=== PATIENT | male | born 1940 | race Caucasian/White ===

== ENCOUNTER 2018-08-26 07:25 | Inpatient (IN) | payer MEDICARE, OTHER ==
[~2018-08-26] VITALS: Ht 180.3 cm; Wt 74.4 kg
[2018-08-26 11:20] VITALS: BMI 26.5
[2018-08-26 12:08] VITALS: BP 91/51
[2018-08-26 13:08] LABS: BASOPHILS 0 % (0-2); EOSINOPHILS 0.1 % (0-7); HEMATOCRIT 36.2 % (42.0-54.0); HEMOGLOBIN 12.1 g/dL (13.5-17.5); IMMATURE GRANULOCYTES 0.3 % (0-5); LYMPHOCYTES 3.1 % (15-50); MCH 28.2 pg (26.0-34.0); MCHC 33.4 g/dL (31.0-37.0); MCV 84.4 fL (80.0-100.0); MEAN PLATELET VOLUME 9.9 fL (7.4-10.4); MONOCYTES 4.4 % (2-11); NEUTROPHILS 92.1 % (40-80); PLATELET COUNT 87 10x3/uL (130-400); RBC 4.29 10x6/uL (4.20-6.10); RDW 14.4 % (11.5-14.5); WBC 12.3 10x3/uL (4.8-10.8)
[2018-08-26 13:24] LABS: ALBUMIN 2.7 g/dL (3.4-5.0); ANION GAP 13.8 mmol/L (8-16); BILIRUBIN - TOTAL 6.56 mg/dL (0.2-1.3); CARBON DIOXIDE 23.8 mmol/L (21.0-32.0); CREATININE - SERUM 1.9 mg/dL (0.6-1.3); POTASSIUM - SERUM 4.6 mmol/L (3.5-5.1); PROTEIN - SERUM 6.4 g/dL (6.4-8.2)
[2018-08-26 14:13] LABS: PLATELET ESTIMATE DECREASED
[2018-08-26 14:15] LABS: SMUDGE CELLS OCC
--- NOTE | 2018-08-26 15:38 | NUR ---
32.2 SECONDS FLURO TIME 13CC CONTRAST USED
[2018-08-26 22:04] VITALS: BP 106/55
[2018-08-27 00:04] VITALS: BP 102/48
--- NOTE | 2018-08-27 04:28 | NUR ---
I have reviewed this patient and I concur with the Shift Assessment completed by the Licensed Practical Nurse today this shift.
[2018-08-27 05:40] LABS: BASOPHILS 0.2 % (0-2); EOSINOPHILS 3.3 % (0-7); HEMATOCRIT 33.3 % (42.0-54.0); HEMOGLOBIN 11.1 g/dL (13.5-17.5); IMMATURE GRANULOCYTES 0.2 % (0-5); LYMPHOCYTES 10.7 % (15-50); MCHC 33.3 g/dL (31.0-37.0); MCV 83.9 fL (80.0-100.0); MEAN PLATELET VOLUME 10.3 fL (7.4-10.4); MONOCYTES 5.6 % (2-11); PLATELET COUNT 71 10x3/uL (130-400); RBC 3.97 10x6/uL (4.20-6.10); RDW 14.7 % (11.5-14.5)
[2018-08-27 05:55] VITALS: BP 93/48
[2018-08-27 06:21] LABS: INR 1.48 (0.85-1.17); PROTIME 17.3 SECONDS (11.6-15.0)
[2018-08-27 06:22] LABS: WBC 5.7 10x3/uL (4.8-10.8)
[2018-08-27 06:50] LABS: ALBUMIN 2.4 g/dL (3.4-5.0); ANION GAP 15.5 mmol/L (8-16); BILIRUBIN - DIRECT 4.36 mg/dL (0.00-0.30); BILIRUBIN - INDIRECT 0.72 mg/dL (0.00-1.00); BILIRUBIN - TOTAL 5.08 mg/dL (0.2-1.3); CALCIUM 7.9 mg/dL (8.5-10.1); CARBON DIOXIDE 20.5 mmol/L (21.0-32.0); CREATININE - SERUM 1.6 mg/dL (0.6-1.3); MAGNESIUM - SERUM 1.9 mg/dL (1.8-2.4)
--- NOTE | 2018-08-27 07:00 | NUR ---
RECEIVED REPORT. ASSUMED CARE OF PATIENT. PATIENT RESTING WITH EYES CLOSED. RESP EVEN AND UNLABORED. NO DISTRESS. CALL LIGHT WITHIN REACH. IV FLUIDS INFUSING ORDERED.
[2018-08-27 07:42] VITALS: BP 108/47
--- NOTE | 2018-08-27 08:19 | NUR ---
AMBULATING IN ROOM. NO DISTRESS.
--- NOTE | 2018-08-27 08:21 | NUR ---
SPOKE WITH HOMERO IN SURGERY AND CONFIRMED THAT PATIENT IS NOT HAVING LAP OWEN TODAY, BUT IS SCHEDULED TOMORROW FOR AROUND 1130ISH PER HOMERO. THANKED HOMERO FOR THIS CLARIFICATION AND WILL LET PATIENT CONSUME CLEAR LIQUID DIET AT THIS TIME.
[2018-08-27 11:25] VITALS: BP 121/54
[2018-08-27 14:09] VITALS: Ht 180.3 cm; Wt 74.4 kg
[2018-08-27 15:26] VITALS: BP 150/63
--- NOTE | 2018-08-27 15:26 | NUR ---
PATIENT SITTING IN BED. NO DISTRESS. CALL LIGHT WITHIN REACH. ATTENTION TOWARD TELEVISION.
--- NOTE | 2018-08-27 19:40 | NUR ---
AWAKE AND NEEDED ASSISTANCE WITH THE PHONE..DENIES OTHER NEEDS BED IS LOW AND LOCKED AND CALL LIGHT IS IN REACH..LCTA BOWEL SOUNDS X4
[2018-08-27 21:27] VITALS: BP 127/58
[2018-08-28 00:38] VITALS: BP 108/53
[2018-08-28 05:35] LABS: BASOPHILS 0.2 % (0-2); EOSINOPHILS 4.6 % (0-7); HEMATOCRIT 31.4 % (42.0-54.0); HEMOGLOBIN 10.6 g/dL (13.5-17.5); IMMATURE GRANULOCYTES 0.3 % (0-5); LYMPHOCYTES 14.4 % (15-50); MCHC 33.8 g/dL (31.0-37.0); MCV 83.1 fL (80.0-100.0); MEAN PLATELET VOLUME 10.8 fL (7.4-10.4); MONOCYTES 9.8 % (2-11); NEUTROPHILS 70.7 % (40-80); PLATELET COUNT 76 10x3/uL (130-400); RBC 3.78 10x6/uL (4.20-6.10); WBC 6.3 10x3/uL (4.8-10.8)
[2018-08-28 06:15] VITALS: BP 112/59
[2018-08-28 06:35] LABS: ALBUMIN 2.2 g/dL (3.4-5.0); ANION GAP 14.5 mmol/L (8-16); BILIRUBIN - DIRECT 2.04 mg/dL (0.00-0.30); BILIRUBIN - INDIRECT 0.79 mg/dL (0.00-1.00); BILIRUBIN - TOTAL 2.83 mg/dL (0.2-1.3); CALCIUM 7.5 mg/dL (8.5-10.1); CARBON DIOXIDE 19.5 mmol/L (21.0-32.0); CREATININE - SERUM 1.4 mg/dL (0.6-1.3); MAGNESIUM - SERUM 1.7 mg/dL (1.8-2.4); PROTEIN - SERUM 5.9 g/dL (6.4-8.2)
[2018-08-28 07:49] LABS: HYPOCHROMASIA OCC; PLATELET ESTIMATE DECREASED
[2018-08-28 08:03] VITALS: BP 136/68
--- NOTE | 2018-08-28 09:00 | NUR ---
AM ROUNDS COMPLETED INTRODUCED MYSELF TO PT PRIMARY RN FOR TODAYS SHIFT. PT IS A&O LYING BACK IN BED RESTING QUIETLY. SHIFT ASSESSMENT COMPLETED. PT IS NPO FOR LAP/OWEN TODAY AND VERBALIZED UNDERSTANDING. PT C/O HIS R.HAND BEING SWOLLEN, UPON ASSESSING HIM NOTED HIS R.AC WAS RED AND HIS ARM FROM HIS IV SITE DOWN TO HIS HAND. PIV IS INFILTRATED. D/C WITH CATHETER TIP FULLY INTACT. NEW 22 GUAGE INSERTED TO L.AC X2 STICKS. INITIATED PTS IV ANBX ORDERED. PT VOICED THANKS AND IS WAITING QUIETLY FOR PROCEDURE. NO FURTHER NEEDS AT THIS TIME. WILL CTM.
--- NOTE | 2018-08-28 11:49 | NUR ---
PT RESTING QUIETLY WAITING ON PROCEDURE. SURGERY CALLED TO PRE-OP PT IS IN GOWN AND PREPPED, WILL GIVE PRE-OP MEDICATIONS NOW ORDERED. NO FURTHER NEEDS. FAMILY VISITING AT BEDSIDE. WILL CTM.
[2018-08-28 11:50] VITALS: BP 139/67
--- NOTE | 2018-08-28 13:28 | NUR ---
PT LEAVING PROCEDURE NOW. NO CURRENT NEEDS.
[2018-08-28] MEDS ORDERED: HYDROCODON-ACE1 EAC7 PO (15:15)
[2018-08-28 16:05] VITALS: BP 147/75
--- NOTE | 2018-08-28 16:05 | NUR ---
PT BACK FROM PROCEDURE AWAKE A&O SITTING UP IN BED. NEPHEW AT BEDSIDE TO VISIT. VSS AND BEING MONITERED PER POST PROCEDURE POLICY. PT HAS 4 NEW ABDOMINAL LAP INCISIONS, ALL HAVE STERI-STRIPS CDI NO S/S OF BLEEDING BRUISING OR HEMATOMA NOTED. INTRUCTED PT TO SPLINT ABDOMEN WITH ANY COUGHING. PT VERBALIZED UNDERSTANDING. INITIATED IV FLUIDS AND IVPB ANBX ORDERED. PT DENIES ANY CURRENT PAIN OR NEEDS AT THIS TIME. CL IN REACH, BED IN LOWEST, SIDE RAILS X2. WILL CTM.
--- NOTE | 2018-08-28 17:35 | NUR ---
PT UNABLE TO VOID AND FEELS LIKE HE NEEDS TO, AT BEDSIDE GOING OVER SURGERY RESULTS AND WILL START FLOMAX TO HELP WITH URINATION. WILL BLADDER SCAN IF PT STILL UNABLE. PT NOW ON FULL LIQUID DIET AND TOLERATED 100% OF HIS DINNER WITHOUT ANY DISCOMFORT OR ISSUES NOTED. ALL 4 LAP INCISIONS ARE DRY AND INTACT WITH STERI-STRIPS ADHERED TO SKIN. VSS AND STILL BEING MONITERED PER POST PROCEDURE PROTOCOL. NO CURRENT NEEDS AT THIS TIME. WILL CTM.
--- NOTE | 2018-08-28 19:15 | NUR ---
PT SITTING UP ON SIDE OF BED ALERT AND ORIENTED. SCANT AMOUNT OF BLOOD ON GOWN ON UPPER ABDOMINAL AREA AT INCITION SITE. CHANGED GOWN. PT UP TO BATHRROOM WITH SOB. O2 SAT 97%. BED LOW CALL LIGHT WITHIN REACH. PT VOIDING 75ML/HR. WILL CONTINUE TO MONITOR.
--- NOTE | 2018-08-28 20:15 | NUR ---
PT SITTING UP IN BED ALERT AND ORIENTED RR EVEN AND UNLABORED. NO S/S OF DISTRESS. BED LOW SIDE RAILS UP X2, CALL LIGHT WITHIN REACH. WILL CONTINUE TO MONITOR.
[2018-08-28 21:21] VITALS: BP 167/68
[2018-08-29 04:00] VITALS: BP 142/68
--- NOTE | 2018-08-29 04:17 | NUR ---
PT RESTING COMFORTABLY RR EVEN AND UNLABORED. PT DENIES ANY PAIN OR NEEDS AT THIS TIME. BED LOW CALL LIGHT WITHIN REACH. WILL CONTINUE TO MONITOR.
[2018-08-29 06:00] LABS: BASOPHILS 0.1 % (0-2); EOSINOPHILS 2.8 % (0-7); HEMATOCRIT 32.1 % (42.0-54.0); HEMOGLOBIN 10.9 g/dL (13.5-17.5); IMMATURE GRANULOCYTES 0.3 % (0-5); LYMPHOCYTES 10.4 % (15-50); MCV 82.5 fL (80.0-100.0); MEAN PLATELET VOLUME 9.8 fL (7.4-10.4); MONOCYTES 7.4 % (2-11); PLATELET COUNT 86 10x3/uL (130-400); RBC 3.89 10x6/uL (4.20-6.10); RDW 15.1 % (11.5-14.5)
[2018-08-29 06:24] LABS: ALBUMIN 2.2 g/dL (3.4-5.0); ANION GAP 14.8 mmol/L (8-16); BILIRUBIN - TOTAL 1.92 mg/dL (0.2-1.3); CALCIUM 7.8 mg/dL (8.5-10.1); CARBON DIOXIDE 19.9 mmol/L (21.0-32.0); CREATININE - SERUM 1.3 mg/dL (0.6-1.3); MAGNESIUM - SERUM 1.7 mg/dL (1.8-2.4); POTASSIUM - SERUM 3.7 mmol/L (3.5-5.1); PROTEIN - SERUM 6.1 g/dL (6.4-8.2)
--- NOTE | 2018-08-29 07:45 | NUR ---
AM ROUNDS COMPLETED. INTRODUCED MYSELF TO PT PRIMARY RN FOR TODAYS SHIFT. PT IS A&O SITTING UP ON EDGE OF BED RESTING QUIETLY. SHIFT ASSESSMENT COMPLETED. NO CHANGES NOTED FROM YESTERDAY EXCEPT PTS NEW 4 LAP ABDOMEN INCISIONS. ALL ARE CLEAN AND DRY WITH STERI STRIPS INTACT. PT STATES HE HAS BEEN VOIDING FINE WITHOUT ANY RESISTANCE OR DIFFICULTIES, EMPTIED URINAL OF 375CC CLEAR YELLOW URINE. PT STATES HE HAS HAD GAS BUT NO BOWEL MOVEMENT. PT TOLERATED FULL LIQUID DIET AND IS REQUESTING TO BE ADVANCED. WILL DISCUSS WITH . PT C/O SLIGHT PAIN UPON AMBULATING BUT DENIES WANTING ANY PRN PAIN MEDICATIONS. PT IS HOPING TO BE DISCHARGED TODAY. WILL AWAIT DOCTORS ROUNDING AND NOTES. NO CURRENT NEEDS. CL IN REACH, BED IN LOWEST, SIDE RAILS X2. WILL CPOC.
[2018-08-29 08:23] VITALS: BP 143/59
--- NOTE | 2018-08-29 09:00 | NUR ---
ROUNDED AND ADVANCED DIET ALONG WITH ADDING A LAXATIVE. PT VERBALIZED UNDERSTANDING AND IS MOTIVATED TO GO HOME. PHYSICAL THERAPY HAS BEEN CONSULTED AND PT IS AMBULATORY WITHOUT ANY ASSISTANCE IN ROOM, WILL KEEP HIM MOVING. NO CURRENT NEEDS, WILL SEE IF PT CAN TOLERATE REGULAR DIET FOR LUNCH AND THEN INQUIRE ABOUT DISCHARGE.
[2018-08-29 12:00] VITALS: BP 136/66
[2018-08-29] MEDS ORDERED: FLOMAX0.4 MG PO (13:10)
--- NOTE | 2018-08-29 13:54 | NUR ---
Nutrition follow-up: Pt s/p lap terrance Diet has advanced to full liquids and pt eating 100% of meals Labs reviewed Wt: 163# RDN following.
--- NOTE | 2018-08-29 14:16 | NUR ---
PT HAD TWO VERY SMALL BOWEL MOVEMENTS AND TOLERATED REGULAR DIET FOR LUNCH. PT WILL BE DISCHARGED AND IS HAPPY TO HEAR THIS. PT STATES HIS FRIEND WILL BE PICKING HIM UP LATER. NO CURRENT NEEDS. WILL BEGIN DISCHARGE WORKUP.
[2018-08-29 15:30] VITALS: BP 119/70
--- NOTE | 2018-08-29 15:43 | NUR ---
DISCHARGE TEACHING PROVIDED AND PAPERS SIGNED. PT VERBALIZED UNDERSTANDING AND DENIES ANY QUESTIONS OR CONCERNS. HARD SCRIPT FOR FLOMAX AND NORCO PROVIDED. REMOVED PTS L.AC PIV WITH CATHETER TIP FULLY INTACT. ALL BELONGINGS COLLECTED. PT DENIES ANY QUESTIONS OR CONCERNS. FAMILY HERE TO TAKE HIM HOME. WILL CALL FOR A W/C ESCORT.
--- NOTE | 2018-08-29 17:24 | MORECARE ---
CASE MANAGEMENT DISCHARGE SUMMARY PATIENT: JORGE ALCOCER JR UNIT: [id number] ADM DATE: 08/26/18 AGE: 78 : 42 SEX: M ROOM/BED: D.3979 AUTHOR: ARIELLADOC PHYSICIAN: REFERRING PHYSICIAN: OXANA SANCHEZ MD DATE OF SERVICE: 08/29/18 Discharge Plan Patient Name: JORGE ALCOCER Facility: [facility]:[place] : 1940 Planned Disposition: Home Anticipated Discharge Date: 08/29/18 Discharge Date: 08/29/2018 Expected LOS: 3 Initial Reviewer: [email or web address] Initial Review Date: 08/29/2018 Generated: 08/29/18 6:24 pm Comments DCP- Discharge Planning Updated by [id number]: Mason Cunha on 08/29/18 4:[address] Patient Name: JORGE ALCOCER Admission Status: ER Accout number: [id number] Admission Date: 08-26-2018 : 1940 Admission Diagnosis:UNSPECIFIED ABDOMINAL PAIN Attending: OXANA SANCHEZ Current LOS: 3 Anticipated DC Date: 08-29-2018 Planned Disposition: Home Primary Insurance: MEDICARE A & B Discharge Planning Comments: CM MET WITH PT IN ROOM TO DISCUSS DISCHARGE PLANNING AND NEEDS. PT REPORTS LIVING AT HOME INDEPENDENTLY AND ALONE. PT HAS A CANE WITH NO MEDICAL EQUIPMENT PROVIDER PREFERENCE. PT HAS NO OUTSIDE SERVICES ASSISTING IN THE HOME. CM DISCUSSED AVAILABILITY OF HOME HEALTH, REHAB SERVICES AND MEDICAL EQUIPMENT. PT DENIES DISCHARGE NEEDS, REPORTS HIS FRIEND VIVIENNE WILL PICK HIM UP FOR DISCHARGE HOME. PT REPORTS HE WILL BE STAYING WITH VIVIENNE AND ADDI FOR A SHORT TIME TO RECOVER BEFORE RETURNING HOME ALONE. IMPORTANT MESSAGE FROM MEDICARE PROVIDED AND EXPLAINED. SUPERVISOR FEED MILL NURSE NOTIFIED. Cyber Instructor: Mason Cunha DCPIA - Discharge Planning Initial Assessment Updated by [email or web address]: Mason Cunha on 08/29/18 5:22 pm * Is the patient Alert and Oriented? Yes * How many steps to enter\exit or inside your home? RAMP * PCP DR[facility] VARGAS IN [place] * Pharmacy [facility] [place] * Preadmission Environment Home Alone * ADLs Independent * Equipment Cane * Other Equipment NO MEDICAL EQUIPMENT PROVIDER PREFERENCE * List name and contact numbers for known caregivers / representatives who currently or will assist patient after discharge: CONCEPCION OR VIVIENNE GERMANWELL, FRIENDS, * Verbal permission to speak to the caregivers and representatives has been obtained from the patient. N/A * Community resources currently utilized None * Please name any agencies selected above. NONE * Additional services required to return to the preadmission environment? No * Can the patient safely return to the preadmission environment? Yes * Has this patient been hospitalized within the prior 30 days at any hospital? No Coverage Notice Reviewer: [id number] Shirlene Cunha Notice Issued Date-Time: 08/29/2018 14:35 Notice Type: IM Discharge Notice Notice Delivered To: Patient Relationship to Patient: Booky Name: Delivery Method: HAND - Hand Delivered Meg Days: Prior Verbal Notification: Recipient Understood Notice: Yes Recipient Signature: Yes Med Rec Note Co-signed by Attending: Coverage Notice Comment: Patient Name: JORGE ALCOCER Page [phone] at 1724 All edits/amendments must be made on the electronic document DICTATION DATE: 08/29/181723 COMPOUND MIXER: LISA 08/29/181723 RPT#: [id number] DC DATE:08/29/18 STATUS: DIS IN [facility] [address] [place] [address] END OF REPORT
--- NOTE | 2018-08-30 08:54 | MORECARE ---
CASE MANAGEMENT DISCHARGE SUMMARY PATIENT: JORGE ALCOCER JR UNIT: [id number] ADM DATE: 08/26/18 AGE: 78 : 42 SEX: M ROOM/BED: D.7459 AUTHOR: ARIELLADOC PHYSICIAN: REFERRING PHYSICIAN: OXANA SANCHEZ MD DATE OF SERVICE: 08/30/18 Discharge Plan Patient Name: JORGE ALCOCER Facility: [facility]:[place] : 1940 Planned Disposition: Home Anticipated Discharge Date: 08/29/18 Discharge Date: 08/29/2018 Expected LOS: 3 Initial Reviewer: [email or web address] Initial Review Date: 08/29/2018 Generated: 08/30/18 9:54 am Comments DCP- Discharge Planning Updated by [email or web address]: Mason Cunha on 08/29/18 4:[address] Patient Name: JORGE ALCOCER Admission Status: ER Accout number: [id number] Admission Date: 08-26-2018 : 1940 Admission Diagnosis:UNSPECIFIED ABDOMINAL PAIN Attending: OXANA SANCHEZ Current LOS: 3 Anticipated DC Date: 08-29-2018 Planned Disposition: Home Primary Insurance: MEDICARE A & B Discharge Planning Comments: CM MET WITH PT IN ROOM TO DISCUSS DISCHARGE PLANNING AND NEEDS. PT REPORTS LIVING AT HOME INDEPENDENTLY AND ALONE. PT HAS A CANE WITH NO MEDICAL EQUIPMENT PROVIDER PREFERENCE. PT HAS NO OUTSIDE SERVICES ASSISTING IN THE HOME. CM DISCUSSED AVAILABILITY OF HOME HEALTH, REHAB SERVICES AND MEDICAL EQUIPMENT. PT DENIES DISCHARGE NEEDS, REPORTS HIS FRIEND VIVIENNE WILL PICK HIM UP FOR DISCHARGE HOME. PT REPORTS HE WILL BE STAYING WITH VIVIENNE AND ADDI FOR A SHORT TIME TO RECOVER BEFORE RETURNING HOME ALONE. IMPORTANT MESSAGE FROM MEDICARE PROVIDED AND EXPLAINED. MOBILE DISC JOCKEY NURSE NOTIFIED. Field Operations Supervisor: Mason Cunha DCPIA - Discharge Planning Initial Assessment Updated by [email or web address]: Mason Cunha on 08/29/18 5:22 pm * Is the patient Alert and Oriented? Yes * How many steps to enter\exit or inside your home? RAMP * PCP DR[facility] VARGAS IN [place] * Pharmacy [facility] [place] * Preadmission Environment Home Alone * ADLs Independent * Equipment Cane * Other Equipment NO MEDICAL EQUIPMENT PROVIDER PREFERENCE * List name and contact numbers for known caregivers / representatives who currently or will assist patient after discharge: CONCEPCION SUZI GERMANWELL, FRIENDS, * Verbal permission to speak to the caregivers and representatives has been obtained from the patient. N/A * Community resources currently utilized None * Please name any agencies selected above. NONE * Additional services required to return to the preadmission environment? No * Can the patient safely return to the preadmission environment? Yes * Has this patient been hospitalized within the prior 30 days at any hospital? No Coverage Notice Reviewer: [id number] Shirlene Cunha Notice Issued Date-Time: 08/29/2018 14:35 Notice Type: IM Discharge Notice Notice Delivered To: Patient Relationship to Patient: Wet Trimmer Name: Delivery Method: HAND - Hand Delivered Meg Days: Prior Verbal Notification: Recipient Understood Notice: Yes Recipient Signature: Yes Med Rec Note Co-signed by Attending: Coverage Notice Comment: Last DP export: 08/29/18 4:24 pm Patient Name: JORGE ALCOCER Page [phone] at 0854 All edits/amendments must be made on the electronic document DICTATION DATE: 08/30/18 0854 MARKETING BUSINESS ANALYST: LISA 08/30/18 0854 RPT#: [id number] DC DATE:08/29/18 STATUS: DIS IN [facility] [address] [place] [address] END OF REPORT
== END 2018-08-29 15:46 | disposition home or self-care (01) | DRG 417 ==
LOC: D.ER 07:25 → D.M2 08:17
PROVIDERS: Family Medicine Adult Medicine; Surgery; ADMIT Family Medicine; ATTEND Family Medicine
PROC: 0FC98ZZ Extirpation of Matter from Common Bile Duct, Via Natural or Artificial Opening Endoscopic (ICD-10-PCS; 2018-08-26)
PROC: 0FT44ZZ Resection of Gallbladder, Percutaneous Endoscopic Approach (ICD-10-PCS; principal; 2018-08-28 12:25)
DX: K80.00 Calculus of gallbladder with acute cholecystitis without obstruction (principal); K85.10 Biliary acute pancreatitis without necrosis or infection; N17.9 Acute kidney failure, unspecified; K83.09 Other cholangitis; D64.9 Anemia, unspecified; E80.6 Other disorders of bilirubin metabolism